=== PATIENT | female | born 2000 | race Caucasian/White ===

== ENCOUNTER → 2018-01-22 | Outpatient (REF) | payer BC, OTHER | LOC: M LAB REF 15:31 | DX: R30.0 Dysuria (principal) | CPT/HCPCS: 87186 ==

== ENCOUNTER → 2018-03-23 | Outpatient (REF) | payer OTHER | LOC: M LAB REF 16:49 | DX: N39.0 Urinary tract infection, site not specified (principal) ==

== ENCOUNTER → 2018-05-13 | Outpatient (REF) | payer OTHER | LOC: M LAB REF 17:50 | DX: N39.0 Urinary tract infection, site not specified (principal) ==

== ENCOUNTER → 2018-08-30 | Outpatient (REF) | payer OTHER | LOC: M LAB REF 17:45 | PROVIDERS: ATTEND Physician Assistant | DX: J01.00 Acute maxillary sinusitis, unspecified (principal) ==

== ENCOUNTER → 2019-06-07 | Outpatient (REF) | payer OTHER | LOC: M LAB REF 17:08 | PROVIDERS: ATTEND Physician Assistant | DX: R30.0 Dysuria (principal) ==

== ENCOUNTER → 2020-02-04 | Outpatient (REF) | payer OTHER | LOC: M WUC 17:30 | PROVIDERS: ATTEND Physician Assistant | DX: Z20.9 Contact with and (suspected) exposure to unspecified communicable disease (principal) ==

== ENCOUNTER → 2020-12-24 | Outpatient (REF) | payer OTHER | LOC: M LAB REF 16:53 | PROVIDERS: ATTEND Physician Assistant | DX: N39.0 Urinary tract infection, site not specified (principal) ==

== ENCOUNTER → 2021-05-03 | Outpatient (REF) | payer OTHER, BC ==
[~2021-05-03] MED LIST: DEBL1TAB PO; SUMA50TA2; TOPI200T7 PO
== END ==
LOC: M LAB REF 15:02
PROVIDERS: ATTEND Physician Assistant
DX: N39.0 Urinary tract infection, site not specified (principal)

== ENCOUNTER → 2021-05-08 | Outpatient (CLI) | payer BC, OTHER | LOC: M LABSMTC 10:23 → EEVIPCON 10:35 | PROVIDERS: ATTEND Anesthesiology | DX: Z11.52 Encounter for screening for COVID-19 (principal); Z20.822 Contact with and (suspected) exposure to COVID-19 ==

== ENCOUNTER 2021-05-13 10:54 | Day surgery (SDC) | payer BC, OTHER ==
[~2021-05-13] VITALS: Ht 157.5 cm; Wt 51.3 kg
[~2021-05-13 10:54] MED LIST changes: +NS 1,000 ML IV ONE
[2021-05-13] MEDS ORDERED: propofoL 200 MG/20 ML VIAL As Ordered ONE (11:34)
[2021-05-13] MEDS ORDERED: LIDOCAINE 2% 100MG/5ML SDV (FOR ANES.) As Ordered ONE (11:34)
[2021-05-13] MEDS ORDERED: ePHEDrine SULFATE 25 MG/5 ML(5MG/ML) SYRINGE As Ordered ONE (15:22)
--- NOTE | 2021-05-13 15:23 | ROOR ---
Patient Name: Candi Atwood Procedure Date: 05/13/2021 2:57 PM Date of : 2000 Age: 21 Room: [id number] Gender: Female Note Status: Finalized Procedure: Colonoscopy Indications: Hematochezia Providers: Kofi Xavier MD Referring MD: Kasia GHOSH DO Requesting Provider: Medicines: Monitored Anesthesia Care Complications: No immediate complications. Procedure: Pre-Anesthesia Assessment: - The heart rate, respiratory rate, oxygen saturations, blood pressure, adequacy of pulmonary ventilation, and response to care were monitored throughout the procedure. The Colonoscope was introduced through the anus and advanced to 10 cm into the ileum. The colonoscopy was performed without difficulty. The patient tolerated the procedure well. The quality of the bowel preparation was good. Findings: The perianal and digital rectal examinations were normal. The mucosa vascular pattern in the rectum and sigmoid colon was diffusely decreased. (dubious significance), This was biopsied with a cold forceps for histology. The exam was otherwise without abnormality on direct and retroflexion views. Impression: - Decreased mucosa vascular pattern in the sigmoid colon. Biopsied. - The colon examination was otherwise normal on direct and retroflexion views. - Small/minimal internal hemorrhoids Recommendation: - Telephone endoscopist for pathology results in 2 weeks. Procedure Code(s): --- Professional --- 72057, Colonoscopy, flexible; with biopsy, single or multiple Diagnosis Code(s): --- Professional --- K92.1, Melena (includes Hematochezia) CPT copyright 2019 [employer]. All rights reserved. The codes documented in this report are preliminary and upon cpc coder review may be revised to meet current compliance requirements. Kofi Xavier MD Kofi Xavier MD 05/13/2021 3:23:40 PM Electronically signed by Kofi Xavier MD Number of Addenda: 0 Note Initiated On: 05/13/2021 2:57 PM Estimated Blood Loss: Estimated blood loss: none.
[2021-05-13 15:44] VITALS: BP 105/72
== END 2021-05-13 15:45 | disposition home or self-care (01) ==
LOC: M OPP 10:54
PROVIDERS: ATTEND Internal Medicine Gastroenterology
DX: K63.89 Other specified diseases of intestine (principal); K92.1 Melena; Z79.3 Long term (current) use of hormonal contraceptives; Z79.899 Other long term (current) drug therapy; F17.290 Nicotine dependence, other tobacco product, uncomplicated

== ENCOUNTER → 2021-05-27 | Outpatient (REF) | payer OTHER ==
[~2021-05-27] MED LIST changes: -NS 1,000 ML IV ONE
== END ==
LOC: M LAB REF 19:45
PROVIDERS: ATTEND Physician Assistant
DX: J06.9 Acute upper respiratory infection, unspecified (principal)